=== PATIENT | male | born 1940 | race Caucasian/White ===

== ENCOUNTER 2022-01-09 21:23 | Emergency (ER) | payer MEDICARE, OTHER ==
--- NOTE | 2022-01-09 21:39 | ED Physician Documentation ---
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 - Chief complaint Chief Complaint: Cardiac - History obtained from History obtained from: Patient - History of Present Illness Timing - onset: How many hours ago (2) Timing - onset during: Rest Timing - duration: Hours Timing - details: Abrupt onset Pain level max: 5 Pain level now: 2 Quality: Pain Location: Substernal Radiation: Left upper extremity Improved by: Nothing Worsened by: Other (no exacerbating factors) Associated symptoms: No: Shortness of air, Diaphoresis, Nausea, Vomiting, Feeling faint / dizzy, General Weakness, Palpitations, Cough Similar symptoms before: Has not had sx before Recently seen: Not recently seen - Additional information Additional information: c/o rapid onset left chest pain radiating to LUE, 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 Denies h/o similar symptoms. Denies dyspnea. Review of Systems Constitutional: reports: Reviewed and negative Cardiac: reports: Chest pain / pressure. denies: Palpitations, Pedal edema, Calf pain Respiratory: reports: Reviewed and negative GI: reports: Reviewed and negative : denies: Dysuria, Frequency Musculoskeletal: reports: Reviewed and negative Neurologic: reports: Reviewed and negative PD PAST MEDICAL HISTORY - Past Medical History Past Medical History: Yes Cardiovascular: Hypertension, High cholesterol Endocrine/Autoimmune: HyPOthyroidism - Present Medications Home Medications: Ambulatory Orders Medication Instructions Recorded Confirmed Apixaban [Eliquis] 5 mg ORAL BID 01/09/22 01/09/22 Levothyroxine [Synthroid] 100 mg PO DAILY 01/09/22 01/09/22 Losartan [Cozaar] 75 mg PO DAILY 01/09/22 01/09/22 Rosuvastatin Calcium [Crestor] 20 mg PO DAILY 01/09/22 01/09/22 Sildenafil Citrate [Sildenafil] 20 mg PO PRN PRN 01/09/22 01/09/22 Testosterone [Androgel] 50 mg TD HS 01/09/22 01/09/22 - Allergies Allergies/Adverse Reactions: Allergies Allergy/AdvReac Type Severity Reaction Status Date / Time Penicillins Allergy Unknown Verified 01/09/22 21:39 PD ED PE NORMAL - Vitals Vital signs reviewed: Yes - General General: Alert and oriented X 3, No acute distress, Well developed/nourished - HEENT HEENT: Moist mucous membranes - Neck Neck: Supple, no meningeal sign - Cardiac Cardiac: No murmur - Respiratory Respiratory: No respiratory distress, Clear bilaterally - Abdomen Abdomen: Soft, Non tender - Derm Derm: Normal color, Warm and dry - Extremities Extremities: No edema - Neuro Neuro: Alert and oriented X 3 PD ED PE EXPANDED - Cardiac Cardiac: Tachy, Irregularly irregular Results - Vitals Vitals: Oxygen O2 Source Room air - EKG (time done) No standard instances Rate: Rate (enter#) (151), Tachy Rhythm: Atrial fibrillation [place]: LAD QRS: Normal Ischemia: Normal ST segments, Q waves (V2, V3), Non specific changes #2 Rate: Rate (enter#) (75) Rhythm: Atrial fibrillation [place]: LAD QRS: Normal Ischemia: Normal ST segments, Q waves (V2, V3) - Labs Labs: Laboratory Tests 01/09/22 01/09/22 01/09/22 21:30 21:30 21:30 WBC 9.1 RBC 5.33 Hgb 18.2 H Hct 51.1 MCV 95.9 H MCH 34.1 H MCHC 35.6 RDW 12.4 Plt Count 202 MPV 9.9 Neut # (Auto) 5.2 Lymph # (Auto) 2.6 Starr # (Auto) 0.9 Eos # (Auto) 0.3 Baso # (Auto) 0.0 Absolute Nucleated RBC 0.00 Nucleated RBC % 0.0 Sodium 139 Potassium 3.7 Chloride 102 Carbon Dioxide 28 Anion Gap 9.0 BUN 17 Creatinine 1.4 H Estimated GFR (MDRD) 49 L Glucose 172 H Calcium 8.9 Troponin I High Sens 15.6 TSH 01/09/22 21:30 WBC RBC Hgb Hct MCV MCH MCHC RDW Plt Count MPV Neut # (Auto) Lymph # (Auto) Starr # (Auto) Eos # (Auto) Baso # (Auto) Absolute Nucleated RBC Nucleated RBC % Sodium Potassium Chloride Carbon Dioxide Anion Gap BUN Creatinine Estimated GFR (MDRD) Glucose Calcium Troponin I High Sens TSH 1.38 - Rads (name of study) chest xray Radiology: Prelim report reviewed, See rad report PD MEDICAL DECISION MAKING - ED course Complexity details: reviewed results, re-evaluated patient, considered differential, d/w patient, d/w family ED course: patients symptoms (chest pain radiating down LUE) resolved in correlation to rate control. 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 He is on Eliquis. Test results are unremarkable and without concerning findings. He is not aware of h/o atrial fibrillation, does not know why he is on eliquis. Whether atrial fibrillation is a new diagnosis for this patient is, at this time, irrelevant: he is rate controlled, asymptomatic, has no concerning findings on tonights testing, and he is already on appropriate anticoagulant (eliquis). He is safe and appropriate for discharge, instructed to follow up with primary care provider, return if worse Departure - Departure Disposition: 01 Home, Self Care Clinical Impression: Rapid atrial fibrillation Chest pain Qualifiers: Chest pain type: unspecified Qualified Code(s): R07.9 - Chest pain, unspecified Condition: Good Instructions: ED Afib, ED Chest Pain Atypical Unkn Cause Comments: As we discussed, your heart rate was very high when you first arrived to the emergency department tonight but your heart rate was rapidly controlled with a dose of intravenous diltiazem (typically used for high blood pressure but often used in the ER to control rapid heart rates). Your heart rhythm is irregular; you have atrial fibrillation. It is unclear if this is a new diagnosis for you, but you are on appropriate medication (specifically, due to risk of blood clots associated with atrial fibrillation, a blood thinning medication is typically needed. You are on eliquis, which is appropriate for this condition). Your EKG and blood tests do not suggest a heart attack. 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 As we discussed, I recommend that you refrain from exercise until and unless cleared to do so by your agricultural commodities inspector. Discharge Date/Time: 01/10/22 00:36
[2022-01-09] MEDS ORDERED: diltiaZEM INJ 5 MG/ML VIAL IVP STA (21:40)
[2022-01-09 21:43] LABS: BASOPHILS % (AUTO) 0.4 %; EOSINOPHILS # (AUTO) 0.3 10^3/uL (0.0-0.7); EOSINOPHILS % (AUTO) 3.3 %; HCT - HEMATOCRIT 51.1 % (42.0-52.0); HGB - HEMOGLOBIN 18.2 g/dL (14.0-18.0); LYMPHOCYTES # (AUTO) 2.6 10^3/uL (1.5-3.5); LYMPHOCYTES % (AUTO) 28.8 %; MEAN CORPUSCULAR HEMOGLOBIN 34.1 pg (27.0-31.0); MEAN CORPUSCULAR HGB CONC 35.6 g/dL (32.0-36.0); MEAN CORPUSCULAR VOLUME 95.9 fL (80.0-94.0); MEAN PLATELET VOLUME 9.9 fL (7.4-11.4); MONOCYTES # (AUTO) 0.9 10^3/uL (0.0-1.0); MONOCYTES % (AUTO) 10.1 %; NEUTROPHILS # (AUTO) 5.2 10^3/uL (1.5-6.6); NEUTROPHILS % (AUTO) 57.1 %; PLT - PLATELET COUNT 202 10^3/uL (130-450); RED BLOOD COUNT 5.33 10^6/uL (4.70-6.10); RED CELL DISTRIBUTION WIDTH 12.4 % (12.0-15.0); WHITE BLOOD COUNT 9.1 x10^3/uL (4.8-10.8)
[2022-01-09 22:03] LABS: CALCIUM 8.9 mg/dL (8.5-10.3); CREATININE 1.4 mg/dL (0.6-1.2); POTASSIUM 3.7 mmol/L (3.5-5.0)
--- NOTE | 2022-01-09 22:10 | XRAY Report ---
PROCEDURE: Chest 1 View X-Ray INDICATIONS: chest pain TECHNIQUE: One view of the chest was acquired. COMPARISON: None. FINDINGS: Surgical changes and devices: None. Lungs and pleura: No pleural effusions or pneumothorax. Lungs are clear. Mediastinum: Mediastinal contours appear normal. Heart size is normal. Bones and chest wall: No suspicious bony lesions. Overlying soft tissues appear unremarkable. IMPRESSION: No acute cardiopulmonary abnormality. Reviewed by: Kwabena Peralta MD on 01/09/2022 10:08 PM [facility] Approved by: Kwabena Peralta MD on 01/09/2022 10:08 PM [facility] Station ID: [id number]
[2022-01-10 00:10] VITALS: BP 122/87
== END 2022-01-10 00:36 | disposition home or self-care (01) ==
LOC: ED 21:23
DX: I48.20 Chronic atrial fibrillation, unspecified (principal); R07.89 Other chest pain; I10 Essential (primary) hypertension
CPT/HCPCS: 36415; 80048; 84443; 84484; 85025; 93005; 96374; 99284